=== PATIENT | male | born 1990 | race Caucasian/White ===

== ENCOUNTER 2018-10-15 14:11 | Emergency (ER) | payer OTHER ==
[2018-10-15 14:15] VITALS: BP 124/66; PULSE 80; TEMP 97.7; BMI 24.3
--- NOTE | 2018-10-15 14:16 | PDOC ---
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 Pt is YFD. Denies falling or hitting his knee Exam: Able to flex and extend R knee. Mild swelling. Orders: x-ray Pt to present to the ER for further evaluation Discharge Disposition - Diagnosis Knee pain Qualifiers: Chronicity: acute Laterality: right Qualified Code(s): M25.561 - Pain in right knee - Referrals - Patient Instructions - Post Discharge Activity
--- NOTE | 2018-10-15 14:55 | PDOC ---
History of Present Illness - General Chief Complaint: Pain Stated Complaint: RT. 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 He does have a history of patellofemoral syndrome Past History - Past Medical History Allergies/Adverse Reactions: Allergies Allergy/AdvReac Type Severity Reaction Status Date / Time No Known Allergies Allergy Verified 10/15/18 14:15 Home Medications: Ambulatory Orders Ondansetron [Zofran Odt -] 4 mg SL BID PRN #10 od.tablet 08/11/15 COPD: No - Immunization History Immunization Up to Date: Yes - Suicide/Smoking/Psychosocial Hx Smoking History: Never smoked Have you smoked in the past 12 months: No Hx Alcohol Use: Yes (SOCIAL) Drug/Substance Use Hx: No Substance Use Type: None Review of Systems - Review of Systems Musculoskeletal: Yes: Joint Pain *Physical Exam - Vital Signs Last Vital Signs Temp Pulse Resp BP Pulse Ox 97.7 F 80 18 124/66 99 10/15/18 14:13 10/15/18 14:13 10/15/18 14:13 10/15/18 14:13 10/15/18 14:13 - Physical Exam Comments: 10/15/18 14:52 Knee skin color and temperature are normal. There is no palpable effusion. Range of motion is full and nonpainful. No medial or lateral joint line tenderness. No patellofemoral crepitation. No evidence of instability. Thigh and calf are soft and nontender. There are no gross sensory motor deficits. Mild tenderness over the lateral patellofemoral facet no crepitation no apprehension or instability Medical Decision Making - Medical Decision Making 10/15/18 14:52 X-rays show no evidence of fracture trauma destructive process thousand to the lateral femoral trochlea *DC/Admit/Observation/Transfer Diagnosis at time of Disposition: Knee pain Qualifiers: Chronicity: acute Laterality: right Qualified Code(s): M25.561 - Pain in right knee - Discharge Dispostion Disposition: HOME Condition at time of disposition: Stable Decision to Admit order: No - Referrals Referrals: Kelton Mcclelland MD [Primary Care Provider] - Juan Wise DO [Staff Physician] - - Patient Instructions Additional Instructions: Tylenol and Motrin as directed for pain follow-up with orthopedic surgery without fail in 1-2 days for further evaluation and treatment options. - Post Discharge Activity Forms/Work/School Notes: Back to Work
== END 2018-10-15 14:54 | disposition home or self-care (01) ==
LOC: JERFT 14:11
DX: S89.81XA Other specified injuries of right lower leg, initial encounter (principal); M25.561 Pain in right knee; X50.0XXA Overexertion from strenuous movement or load, initial encounter; Y93.F2 Activity, caregiving, lifting; Y92.89 Other specified places as the place of occurrence of the external cause; Y99.0 Civilian activity done for income or pay
CPT/HCPCS: 73562-TC-RT-FY; 99281-25

== ENCOUNTER 2020-11-20 12:08 | Emergency (ER) | payer OTHER ==
[2020-11-20 12:49] VITALS: BP 123/72; PULSE 76; TEMP 98; BMI 22.8
[2020-11-20] MEDS ORDERED: IBUPROFEN 400 MG TABLET (FP) PO ONE ×2 (13:28→13:33)
== END 2020-11-20 13:48 | disposition home or self-care (01) ==
LOC: JERFT 12:08 → JER 12:08 → JERFT 13:48
DX: S39.92XA Unspecified injury of lower back, initial encounter (principal); S70.11XA Contusion of right thigh, initial encounter; W10.8XXA Fall (on) (from) other stairs and steps, initial encounter; Y93.01 Activity, walking, marching and hiking
CPT/HCPCS: 99283-25

== ENCOUNTER 2024-09-20 08:46 | Emergency (ER) | payer OTHER ==
[2024-09-20 08:55] VITALS: BP 128/61; PULSE 80; RESP 20; TEMP 98.1; BMI 24.3
== END 2024-09-20 10:01 | disposition home or self-care (01) ==
LOC: JERFT 08:46
DX: S83.411A Sprain of medial collateral ligament of right knee, initial encounter (principal); X50.1XXA Overexertion from prolonged static or awkward postures, initial encounter; Y99.0 Civilian activity done for income or pay
CPT/HCPCS: 73560-TC-RT-FY; 99283-25